=== PATIENT | female | born 1975 | race Caucasian/White ===

== ENCOUNTER → 2019-05-10 | Outpatient (CLI) | payer BC ==
[~2019-05-10] MED LIST: CHOL500049 PO; DULO60CA6 PO; HYDR-3870 PO; LORA10TA76 PO; MAGN400T39 PO; METF-397 PO; NABU750T PO; NITR-65 PO; PHEN37.53 PO; TAMS0.4C98 PO; VICTOZA SQ
--- NOTE | 2019-05-10 15:45 | Diagnostic Imaging Report ---
PROCEDURE: US left lower extremity venous. TECHNIQUE: Multiple real-time grayscale images were obtained over the left lower extremity in various projections. Additional duplex Doppler and color Doppler images were also obtained. INDICATION: Ankle swelling, positive Homans sign. COMPARISON: None available. FINDINGS: Normal flow, compression, and augmentation within the visualized deep venous structures of the left lower extremity. IMPRESSION: No evidence of a deep venous thrombosis within the left lower extremity. Dictated by: Dictated on workstation # [id number]
== END ==
LOC: RAD 14:53
PROVIDERS: ATTEND Nurse Practitioner Family
DX: M25.472 Effusion, left ankle (principal); R29.898 Other symptoms and signs involving the musculoskeletal system
CPT/HCPCS: 36415; 85379

== ENCOUNTER 2019-11-11 12:00 | Outpatient (CLI) | payer BC ==
[~2019-11-11] VITALS: Ht 175.3 cm; Wt 78.6 kg
[~2019-11-11 12:00] MED LIST changes: -TAMS0.4C98 PO; +TMSL.4C PO
[2019-11-11] MEDS ORDERED: LIRA0.6P3 SQ (12:39)
[2019-11-11] MEDS ORDERED: CLON0.5T PO (12:39)
[2019-11-11] MEDS ORDERED: FLUC150T PO (12:39)
[2019-11-16] MEDS ORDERED: ACHD5005 PO (09:05)
== END 2019-11-11 12:41 | disposition home or self-care (01) ==
LOC: PREOP 12:00
PROVIDERS: ATTEND Surgery
DX: Z01.818 Encounter for other preprocedural examination (principal)

== ENCOUNTER 2021-05-11 17:22 | Emergency (ER) | payer OTHER, BC ==
[~2021-05-11] VITALS: Ht 175 cm; Wt 75.0 kg
[~2021-05-11 17:22] MED LIST changes: +ACHD5005 PO; +CLON0.5T PO; +FLUC150T PO; +LIRA0.6P3 SQ; +NABU-95 PO; -NABU750T PO
[2021-05-11] MEDS ORDERED: RX-AMOX/CLAV. (AUGMENTIN) 500MG TAB PPK#2 PO STA (17:34)
--- NOTE | 2021-05-11 17:39 | ED Upper Extremity ---
General Stated Complaint: STAPLE IN L THUMB Source: patient Exam Limitations: no limitations History of Present Illness Date Seen by Provider: May 11, 2021 Time Seen by Provider: 17:35 Initial Comments To ER with a staple in the left thumb since reloading a stapler while at work at [employer]. Onset: just prior to arrival Severity: moderate Pain/Injury Location: left thumb Modifying Factors: Worse With Movement Allergies and Home Medications Allergies Coded Allergies: butorphanol (Verified Allergy, Unknown, HALLUNICATIONS, 09/24/15) Home Medications Clonazepam 0.5 Mg Tablet, 0.5 MG PO HS, (Reported) Fluconazole 150 Mg Tablet, 150 MG PO WEEK, (Reported) Hydrocodone Bit/Acetaminophen 1 Tab Tab, 1 TAB PO Q6H PRN for PAIN-MODERATE Prescribed by: GABI CANCHOLA on 11/16/19 0905 Liraglutide 0.6 Mg/0.1 Ml Pen.injctr, 1.8 MG SQ DAILY, (Reported) Loratadine 10 Mg Tablet, 10 MG PO DAILY, (Reported) Phentermine HCl 37.5 Mg Tablet, 37.5 MG PO DAILY, (Reported) Patient Home Medication List Home Medication List Reviewed: Yes Review of Systems Constitutional: see HPI EENTM: see HPI Respiratory: no symptoms reported Cardiovascular: no symptoms reported Genitourinary: no symptoms reported Musculoskeletal: see HPI Skin: no symptoms reported Psychiatric/Neurological: No Symptoms Reported Past Hdluctw-Jfdzer-Voziam Hx Seasonal Allergies Seasonal Allergies: Yes Past Medical History Surgeries: Yes (UD, kidney stone sx) Tonsillectomy, Tubal Ligation Respiratory: No Cardiac: No Neurological: No Genitourinary: Yes Kidney Stones Gastrointestinal: Yes Gall Bladder Disease Musculoskeletal: Yes Fibromyalgia Endocrine: No HEENT: No Cancer: No Psychosocial: Yes Anxiety Integumentary: No Blood Disorders: No Physical Exam Vital Signs Capillary Refill : Height, Weight, BMI Height: 5'9.00" Weight: 195lbs. oz. [id number]; 25.57 BMI Method: General Appearance: WD/WN, no apparent distress HEENT: PERRL/EOMI, normal ENT inspection Respiratory: no respiratory distress, no accessory muscle use Shoulder: normal inspection, non-tender Elbow/Forearm: normal inspection, non-tender Wrist: Yes normal inspection, Yes non-tender Hand: soft tissue tenderness (Single pavan of a staple in the palmar surface of the left thumb near the IP joint. This was removed with simple needle drivers.) Neurologic/Tendon: normal sensation Neurologic/Psychiatric: alert, normal mood/affect, oriented x 3 Skin: normal color, warm/dry Progress/Results/Core Measures Results/Orders My Orders Orders - MÓNICA ESTRELLA APRN Dipht,Pertuss(Acell),Tet Adult (Boostrix (05/11/21 17:45) Rx-Amoxicillin/Clav Tab (Rx-Augmentin Ta (05/11/21 17:34) Departure Communication (Admissions) Because of the possibility that this staple did penetrate into the IP joint space I will give her some prophylactic antibiotics Impression Primary Impression: Soft tissues foreign body Disposition: 01 HOME, SELF-CARE Condition: Stable Departure-Patient Inst. Decision time for Depature: 17:38 Referrals: LALIT ALBARRAN DO (PCP) Primary Care Physician CAREY ALBARRAN DNP (Family) Primary Care Physician Patient Instructions: Foreign Body in Skin MÓNICA ESTRELLA APRN May 11, 2021 17:39
[2021-05-11] MEDS ORDERED: TETANUS,DIPTH,PERTUSS P/F (BOOSTRIX) 0.5 ML VIAL IM ONE (17:45)
[2021-05-11 18:07] VITALS: BP 159/108
== END 2021-05-11 18:07 | disposition home or self-care (01) ==
LOC: EDUNIT# 17:22 → ER 17:25
DX: S60.352A Superficial foreign body of left thumb, initial encounter (principal); F41.9 Anxiety disorder, unspecified; Z79.899 Other long term (current) drug therapy; Z23 Encounter for immunization; X58.XXXA Exposure to other specified factors, initial encounter; Y92.59 Other trade areas as the place of occurrence of the external cause; Y99.0 Civilian activity done for income or pay
CPT/HCPCS: 90715; 99284

== ENCOUNTER 2023-08-06 17:54 | Emergency (ER) | payer BC ==
[~2023-08-06] VITALS: Ht 175 cm; Wt 74.0 kg
[~2023-08-06 17:54] MED LIST changes: -DULO60CA6 PO; +DULO60CA7 PO; -PHEN37.53 PO; +PHEN37.58 PO
--- NOTE | 2023-08-06 18:09 | ED Abdominal Pain ---
General Chief Complaint: Abdominal/GI Problems Stated Complaint: SEVERE STOMACH PAIN History of Present Illness Date Seen by Provider: Aug 06, 2023 Time Seen by Provider: 18:07 Initial Comments PT ARRIVES VIA POV FROM HOME PT HAS CHRONIC PELVIC PAIN, AND CAT BREEDER ISSUES PT C/O RLQ PAIN TODAY SHE HAD AN ENDOMETRIAL ABLATION 02/2022 AND HAD NOT HAD A PERIOD SINCE THEN, SHE HAD "VERY FAINT SPOTTING" X 1 DAY IN APRIL SHE HAS SEEN DR. CHRISTIAN, YARD CALLER AT [place], AND HAD AN ULTRASOUND AND WAS TOLD SHE HAD AN OVARIAN CYST AND "A BLOOD CLOT IN MY UTERUS" SHE HAS AN APPOINTMENT ON THURSDAY WITH DR. CHENG, YARD CALLER WITH [facility], FOR CONSULT FOR POSSIBLE HYSTERECTOMY SHE SAW KATHRINE ALBARRAN YESTERDAY FOR THIS PROBLEM AND WAS GIVEN RX FOR HYDROCODONE--SHE HAS TAKEN 1 PILL TODAY AT 1330, WITHOUT RELIEF. SHE HAS NOT TAKEN ANYTHING ELSE FOR PAIN . SHE WAS REFERRED TO DR. AREVALO, YARD CALLER HERE AT [place],"TO SEE IF THINGS CAN GET DONE FASTER" BUT NO APPOINTMENT HAS BEEN MADE YET. NO NAUSEA/VOMITING HAS CHRONIC CONSTIPATION, LAST BM WAS Thursday08/04/23 NO FEVER NO URINARY SYMPTOMS PT HAS HAD PRIOR CHOLECYSTECTOMY IN 2019, BTL AND ENDOMETRIAL ABLATION SHE HAS HISTORY OF KIDNEY STONES AND HAS HAD LITHOTRIPSY X 1 IN 2014 SHE HAS HTN AND FIBROMYALGIA PCP: KATHRINE ALBARRAN. Allergies and Home Medications Allergies Coded Allergies: butorphanol (Verified Allergy, Unknown, [facility], 09/24/15) Patient Home Medication List Home Medication List Reviewed: Yes Clonazepam (Klonopin) 0.5 Mg Tablet, 0.5 MG PO HS, (Reported) Entered as Reported by: DELMA MANUEL on 11/11/19 1239 Fluconazole (Diflucan) 150 Mg Tablet, 150 MG PO WEEK, (Reported) Entered as Reported by: DELMA MANUEL on 11/11/19 1239 Hydrocodone Bit/Acetaminophen (Lortab 5 Mg Tablet) 1 Tab Tab, 1 TAB PO Q6H PRN for PAIN-MODERATE Prescribed by: GABI CANCHOLA on 11/16/19 0905 Ketorolac Tromethamine (Ketorolac Tromethamine) 10 Mg Tablet, 10 MG PO Q6H Prescribed by: ALFONZO MON on 08/06/232027 Liraglutide (Victoza 3-Eyal) 0.6 Mg/0.1 Ml Pen.injctr, 1.8 MG SQ DAILY, (Reported) Entered as Reported by: DELMA MANUEL on 11/11/19 1239 Loratadine (Claritin) 10 Mg Tablet, 10 MG PO DAILY, (Reported) Entered as Reported by: DELMA MANUEL on 09/24/15 151 Oxycodone HCl/Acetaminophen (Oxycodone-Acetaminophen 5-325) 5 Mg-325 Mg Tablet, 1 EACH PO Q4H PRN for PAIN-MODERATE Prescribed by: ALFONZO MON on 08/06/232029 Phentermine HCl (Phentermine HCl) 37.5 Mg Tablet, 37.5 MG PO DAILY, (Reported) Entered as Reported by: DELMA MANUEL on 09/24/15 151 Review of Systems Review of Systems Constitutional: no symptoms reported Respiratory: No Symptoms Reported Cardiovascular: No Symptoms Reported Gastrointestinal: See HPI, Abdominal Pain, Constipated Genitourinary: See HPI Musculoskeletal: no symptoms reported Skin: no symptoms reported Psychiatric/Neurological: No Symptoms Reported Endocrine: No Symptoms Reported Hematologic/Lymphatic: No Symptoms Reported Past Piervho-Pryadi-Soibvr Hx Patient Social History Tobacco Use?: No Substance use?: No Alcohol Use?: No Seasonal Allergies Seasonal Allergies: Yes Past Medical History Surgeries: Yes (LITHOTRIPSY 2014; NATALIA 2019; ENDOMETRIAL ABLATION 02/2022. ) Gallbladder, Renal, Tonsillectomy, Tubal Ligation Respiratory: No Cardiac: Yes Hypertension Neurological: No : No Reproductive Disorders: Yes (CHRONIC PELVIC PAIN) Female Reproductive Disorders: Menstrual Problems, Ovarian Cyst Genitourinary: Yes Kidney Stones Gastrointestinal: Yes (S/P NATALIA) Gall Bladder Disease Musculoskeletal: Yes Fibromyalgia Endocrine: No HEENT: No Cancer: No Psychosocial: Yes Anxiety Integumentary: No Blood Disorders: No Physical Exam Vital Signs Vital Signs - First Documented 08/06/23 18:06 Temp 36.8 Pulse 76 Resp 20 B/P (MAP) 129/83 (98) Pulse Ox 100 O2 Delivery Room Air Capillary Refill : Height/Weight/BMI Height: 5'9.00" Weight: 195lbs. oz. 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, no motor/sensory deficits, alert, normal mood/affect, oriented x 3 Skin: normal color, warm/dry; No rash Progress/Results/Core Measures Results/Orders Lab Results Laboratory Tests Test 08/06/23 18:10 08/06/23 18:35 Range/Units Urine Color YELLOW Urine Clarity CLEAR Urine pH 6.0 5-9 Urine Specific [place] 1.010 L 1.016-1.022 Urine Protein NEGATIVE NEGATIVE Urine Glucose (UA) NEGATIVE NEGATIVE Urine Ketones NEGATIVE NEGATIVE Urine Nitrite NEGATIVE NEGATIVE Urine Bilirubin NEGATIVE NEGATIVE Urine Urobilinogen 0.2 < = 1.0 MG/DL Urine Leukocyte Esterase NEGATIVE NEGATIVE Urine RBC (Auto) NEGATIVE NEGATIVE Urine RBC NONE /HPF Urine WBC RARE /HPF Urine Squamous Epithelial Cells 2-5 /HPF Urine Crystals NONE /LPF Urine Bacteria FEW H /HPF Urine Casts NONE /LPF Urine Mucus NEGATIVE /LPF Urine Culture Indicated YES White Blood Count 11.0 4.3-11.0 10^3/uL Red Blood Count 4.68 3.80-5.11 10^6/uL Hemoglobin 14.4 11.5-16.0 g/dL Hematocrit 43 35-52 % Mean Corpuscular Volume 91 80-99 fL Mean Corpuscular Hemoglobin 31 25-34 pg Mean Corpuscular Hemoglobin Concent 34 32-36 g/dL Red Cell Distribution Width 12.3 10.0-14.5 % Platelet Count 295 130-400 10^3/uL Mean Platelet Volume 9.8 9.0-12.2 fL Immature Granulocyte % (Auto) 0 % Neutrophils (%) (Auto) 73 42-75 % Lymphocytes (%) (Auto) 21 12-44 % Monocytes (%) (Auto) 5 0-12 % Eosinophils (%) (Auto) 1 0-10 % Basophils (%) (Auto) 0 0-10 % Neutrophils # (Auto) 8.1 H 1.8-7.8 10^3/uL Lymphocytes # (Auto) 2.3 1.0-4.0 10^3/uL Monocytes # (Auto) 0.5 0.0-1.0 10^3/uL Eosinophils # (Auto) 0.1 0.0-0.3 10^3/uL Basophils # (Auto) 0.0 0.0-0.1 10^3/uL Immature Granulocyte # (Auto) 0.0 0.0-0.1 10^3/uL Sodium Level 139 135-145 MMOL/L Potassium Level 3.2 L 3.6-5.0 MMOL/L Chloride Level 101 98-107 MMOL/L Carbon Dioxide Level 25 21-32 MMOL/L Anion Gap 13 5-14 MMOL/L Blood Urea Nitrogen 15 7-18 MG/DL Creatinine 0.83 0.60-1.30 MG/DL Estimat Glomerular Filtration Rate 87 BUN/Creatinine Ratio 18 Glucose Level 135 H 70-105 MG/DL Calcium Level 9.5 8.5-10.1 MG/DL Corrected Calcium 9.1 8.5-10.1 MG/DL Total Bilirubin 0.3 0.1-1.0 MG/DL Aspartate Amino Transf (AST/SGOT) 20 5-34 U/L Alanine Aminotransferase (ALT/SGPT) 14 0-55 U/L Alkaline Phosphatase 37 L 40-136 U/L Total Protein 7.7 6.4-8.2 GM/DL Albumin 4.5 3.2-4.5 GM/DL Amylase Level 75 25-125 U/L Lipase 26 8-78 U/L Serum Test, Qualitative NEGATIVE NEGATIVE My Orders Orders - ALFONZO MON DO Ed Iv/Invasive Line Start (08/06/23 18:07) Monitor-Rhythm Ecg Trace Only (08/06/23 18:07) Amylase (08/06/23 18:07) Cbc And Automated Diff (08/06/23 18:07) Comprehensive Metabolic Panel (08/06/23 18:07) Lipase (08/06/23 18:07) Ua Culture If Indicated (08/06/23 18:07) Hcg,Qualitative Serum (08/06/23 18:17) Ed Iv/Invasive Line Start (08/06/23 18:17) Lactated Ringers 1,000 Ml (Lactated Ring (08/06/23 18:30) Ketorolac Injection (Ketorolac Injection (08/06/23 18:17) Urine Bedside (08/06/23 18:21) Urine Culture (08/06/23 18:10) Ct Abd/Pelv W (Appendicitis) (08/06/23 18:47) Abdomen, Flat & Upright/Decub (08/06/23 18:47) Iohexol Injection (Omnipaque 350 Mg/Ml 1 (08/06/23 19:00) Ns (Ivpb) 100 Ml (Sodium Chloride 0.9% 1 (08/06/23 19:00) Fentanyl Injection (Fentanyl Injection (08/06/23 20:18) Rx-Oxycodone/Apap 5-325 Mg (Rx-Percocet (08/06/23 20:45) Medications Given in ED Current Medications Medications Dose Ordered Sig/Ezio Route Start Time Stop Time Status Last Admin Dose Admin Iohexol 100 ml ONCE ONCE IV 08/06/23 19:00 08/06/23 19:01 DC 08/06/23 19:07 80 ML Lactated Ringer's 1,000 ml @ 0 mls/hr Q0M ONCE IV 08/06/23 18:30 08/06/23 18:31 DC 08/06/23 18:41 1,000 MLS/HR Oxycodone/ Acetaminophen 1 ea Q4H PRN PO 08/06/23 20:45 08/06/23 21:10 DC 08/06/23 21:03 1 EA Sodium Chloride 100 ml ONCE ONCE IV 08/06/23 19:00 08/06/23 19:01 DC 08/06/23 19:07 80 ML Vital Signs/I&O 08/06/23 08/06/23 08/06/23 08/06/23 18:06 18:41 20:45 21:10 Temp 36.8 36.8 36.8 36.8 Pulse 76 63 Resp 20 18 B/P (MAP) 129/83 (98) 131/87 Pulse Ox 100 100 O2 Delivery Room Air Room Air Progress Progress Note : Progress Note VITALS ON ARRIVAL: TEMP 36.8, HR 76, RR 20, BP 129/83, O2 SAT 100% ON ROOM AIR GIVEN: -IV FLUIDS -TORADOL--NO IMPROVEMENT IN PAIN -FENTANYL--PAIN IMPROVED LABS: -CBC NORMAL -CMP K 3.2, OTHERWISE NORMAL -AMYLASE/LIPASE NORMAL -UA CLEAR -HCG NEGATIVE CT ABDOMEN/PELVIS SHOWS MASS-LIKE ENLARGEMENT OF UTERUS. NORMAL APPEARING OVARIES/ADNEXA, NO EVIDENCE OF APPENDICITS DISCUSSED TEST RESULTS, ANTICIPATED COURSE, SYMPTOMATIC TREATMENT, MEDICATIONS, NEED FOR FOLLOW UP WITH YARD CALLER ON THURSDAY SCHEDULED AND RETURN PRECAUTIONS REVIEWED PRIOR RECORDS--SINGLE ER VISIT AND 2 OUTPATIENT SURGERIES/PROCEDURES, H&P'S/DISCHARGE SUMMARIES Diagnostic Imaging Comments XRAYS OF ABDOMEN--PER RADIOLOGIST REPORT AT 2023 FINDINGS: The lung bases are clear. Bowel gas pattern is nonspecific. No free air. There are surgical clips in right upper quadrant. IMPRESSION: Nonspecific bowel gas pattern. CT ABDOMEN/PELVIS--PER RADIOLOGIST REPORT AT 2023 COMPARISON: None. FINDINGS: There is mild atelectasis involving both lung bases. Bones show no significant abnormality. The gallbladder surgically absent. The liver, spleen, pancreas, and adrenal glands are unremarkable. Both kidneys are unremarkable. No hydronephrosis, stone, or mass. The bladder is fluid-filled and otherwise unremarkable. There is significant enlargement involving the uterus and endometrial region. There is low-density involving the endometrial area. The adnexal structures show no significant abnormality. Of note, the cecum is in the low pelvis and is just ventral to the region of the uterus. The appendix is not definitively visualized and may be obscured by grossly adjacent intestines. There is no enlarged tubular structure seen. There is no inflammation in the pericecal region. There is no intestinal obstruction. Stomach and small intestines are unremarkable. There is no significant lymphadenopathy. There is no intra-abdominal free air or free fluid. There is a small fat-containing supraumbilical abdominal hernia with a loop of intestine slightly within it. There is no evidence of intestinal obstruction or adjacent inflammation. Extraabdominal and extrapelvic soft tissue structures are unremarkable. IMPRESSION: 1: There is masslike enlargement involving the uterus. There is either fluid distention of the endometrium or a possible cystic or low-density mass component. Ultrasound of the pelvis is suggested for further evaluation. 2: The appendix is not visualized on this exam and may be obscured by closely adjacent structures. The cecum also abuts the ventral aspect of the pelvis, but there is no inflammation in the region of the cecum. 3: The gallbladder is surgically absent. 4: There is a small fat-containing supraumbilical abdominal hernia. Reviewed: Reviewed by Me Departure Impression Primary Impression: Chronic pelvic pain in female Additional Impression: Uterine enlargement Disposition: 01 HOME, SELF-CARE Condition: Stable Departure-Patient Inst. Decision time for Depature: 20:27 Referrals: LALIT ALBARRAN DO (PCP) Primary Care Physician CAREY ALBARRAN, YUDI (Family) Primary Care Physician Patient Instructions: Chronic pelvic pain in females Add. Discharge Instructions: KEEP YOUR APPOINTMENT ON THURSDAY WITH YARD CALLER STOP HYDROCODONE All discharge instructions reviewed with patient and/or family. Voiced understanding. Scripts Oxycodone HCl/Acetaminophen (Oxycodone-Acetaminophen 5-325) 5 Mg-325 Mg Tablet 1 EACH PO Q4H PRN for PAIN-MODERATE MDD 6 for 3 Days, #15 TAB 0 Refills Prov: ALFONZO MON DO 08/06/23 Ketorolac Tromethamine (Ketorolac Tromethamine) 10 Mg Tablet 10 MG PO Q6H for Pain, #15 TAB Prov: ALFONZO MON DO 08/06/23 ALFONZO MON DO Aug 06, 2023 18:09
[2023-08-06 18:41] LABS: BASOPHILS % (AUTO) 0 % (0-10); EOSINOPHILS # (AUTO) 0.1 10^3/uL (0.0-0.3); EOSINOPHILS % (AUTO) 1 % (0-10); HEMATOCRIT 43 % (35-52); HEMOGLOBIN 14.4 g/dL (11.5-16.0); LYMPHOCYTES # (AUTO) 2.3 10^3/uL (1.0-4.0); LYMPHOCYTES % (AUTO) 21 % (12-44); MEAN CORPUSCULAR HEMOGLOBIN 31 pg (25-34); MEAN CORPUSCULAR HGB CONC 34 g/dL (32-36); MEAN CORPUSCULAR VOLUME 91 fL (80-99); MEAN PLATELET VOLUME 9.8 fL (9.0-12.2); MONOCYTES # (AUTO) 0.5 10^3/uL (0.0-1.0); MONOCYTES % (AUTO) 5 % (0-12); NEUTROPHILS # (AUTO) 8.1 10^3/uL (1.8-7.8); NEUTROPHILS % (AUTO) 73 % (42-75); PLATELET COUNT 295 10^3/uL (130-400)
[2023-08-06] MEDS: LACTATED RINGERS 1,000 ML 1,000 ML IV ONE (18:41)
[2023-08-06] MEDS: KETOROLAC INJ 30 MG/ML VIAL IVP STA (18:41)
[2023-08-06 18:45] LABS: BACTERIA,URINE FEW /HPF; BILIRUBIN,URINE NEGATIVE (NEGATIVE); CLARITY,URINE CLEAR; COLOR,URINE YELLOW; GLUCOSE, URINE (UA) NEGATIVE (NEGATIVE); KETONES,URINE NEGATIVE (NEGATIVE); LEUKOCYTE ESTERASE ,URINE NEGATIVE (NEGATIVE); NITRITE,URINE NEGATIVE (NEGATIVE); PROTEIN,URINE NEGATIVE (NEGATIVE); WBC,URINE RARE /HPF
[2023-08-06 18:54] LABS: ALBUMIN 4.5 GM/DL (3.2-4.5); POTASSIUM 3.2 MMOL/L (3.6-5.0)
[2023-08-06 18:56] LABS: CALCIUM 9.5 MG/DL (8.5-10.1)
[2023-08-06 18:57] LABS: TOTAL PROTEIN 7.7 GM/DL (6.4-8.2)
[2023-08-06 18:59] LABS: BILIRUBIN,TOTAL 0.3 MG/DL (0.1-1.0)
[2023-08-06] MEDS: IOHEXOL 350 MG/ML 100 ML (OMNIPAQUE 350) VIAL IV ONE (19:07)
[2023-08-06] MEDS: NS 100 ML (IVPB) BAG IV ONE (19:07)
--- NOTE | 2023-08-06 19:12 | Diagnostic Imaging Report ---
INDICATION: Abdominal pain. FINDINGS: The lung bases are clear. Bowel gas pattern is nonspecific. No free air. There are surgical clips in right upper quadrant. IMPRESSION: Nonspecific bowel gas pattern. Dictated by: Dictated on workstation # [id number]
[2023-08-06 19:48] LABS: CREATININE SERUM 0.83 MG/DL (0.60-1.30)
--- NOTE | 2023-08-06 20:20 | Diagnostic Imaging Report ---
CLINICAL INDICATIONS: Patient with right lower quadrant pain. Patient with history of lithotripsy, gallbladder surgery, tubal ligation and ovarian cyst and blood clot. EXAM: Axial CT scan of the abdomen and pelvis performed with 80 mL of Omnipaque 350 IV contrast. Sagittal and coronal reformatted images are created. Auto Exposure Controls were utilized during the CT exam to meet ALARA standards for radiation dose reduction. COMPARISON: None. FINDINGS: There is mild atelectasis involving both lung bases. Bones show no significant abnormality. The gallbladder surgically absent. The liver, spleen, pancreas, and adrenal glands are unremarkable. Both kidneys are unremarkable. No hydronephrosis, stone, or mass. The bladder is fluid-filled and otherwise unremarkable. There is significant enlargement involving the uterus and endometrial region. There is low-density involving the endometrial area. The adnexal structures show no significant abnormality. Of note, the cecum is in the low pelvis and is just ventral to the region of the uterus. The appendix is not definitively visualized and may be obscured by grossly adjacent intestines. There is no enlarged tubular structure seen. There is no inflammation in the pericecal region. There is no intestinal obstruction. Stomach and small intestines are unremarkable. There is no significant lymphadenopathy. There is no intra-abdominal free air or free fluid. There is a small fat-containing supraumbilical abdominal hernia with a loop of intestine slightly within it. There is no evidence of intestinal obstruction or adjacent inflammation. Extraabdominal and extrapelvic soft tissue structures are unremarkable. IMPRESSION: 1: There is masslike enlargement involving the uterus. There is either fluid distention of the endometrium or a possible cystic or low-density mass component. Ultrasound of the pelvis is suggested for further evaluation. 2: The appendix is not visualized on this exam and may be obscured by closely adjacent structures. The cecum also abuts the ventral aspect of the pelvis, but there is no inflammation in the region of the cecum. 3: The gallbladder is surgically absent. 4: There is a small fat-containing supraumbilical abdominal hernia. Dictated by: Dictated on workstation # [id number]
[2023-08-06] MEDS ORDERED: KETO10TA PO (20:28)
[2023-08-06] MEDS ORDERED: OXYC1TAB11 PO (20:30)
[2023-08-06] MEDS: fentaNYL INJECTION 100 MCG/2 ML VIAL IVP STA (20:45)
[2023-08-06] MEDS: RX-OXYCODONE/APAP 5-325 MG #4 TAB PK PO PRN (21:03)
[2023-08-06 21:10] VITALS: BP 131/87
== END 2023-08-06 21:10 | disposition home or self-care (01) ==
LOC: EDUNIT# 17:54 → ER 17:58
DX: N85.2 Hypertrophy of uterus (principal); G89.29 Other chronic pain; Z90.49 Acquired absence of other specified parts of digestive tract; Z98.890 Other specified postprocedural states
CPT/HCPCS: 36415; 74019; 74177; 80053; 81000; 82150; 83690; 84703; 85025; 87088; 93041